=== PATIENT | female | born 1965 | race Caucasian/White ===

== ENCOUNTER 2017-05-08 15:12 | Outpatient (CLI) | payer BC | END 2017-05-08 15:13 | disposition home or self-care (01) | LOC: BICMAMMO 15:12 | PROVIDERS: ATTEND Family Medicine | DX: Z12.31 Encounter for screening mammogram for malignant neoplasm of breast (principal) | CPT/HCPCS: 77063; 77067 ==

== ENCOUNTER 2017-08-14 13:13 | Outpatient (CLI) | payer BC | END 2017-08-14 13:14 | disposition home or self-care (01) | LOC: BICRAD 13:13 | PROVIDERS: ATTEND Family Medicine | DX: M54.5 Low back pain (principal) | CPT/HCPCS: 72100 ==

== ENCOUNTER 2018-05-08 07:32 | Outpatient (CLI) | payer BC ==
--- NOTE | 2018-05-08 09:53 | ULT ---
ULTRASOUND ABDOMEN COMPLETE: DATE: 05/08/18 HISTORY: 52-year-old female with: Nausea R11.0 Belching symptom R14.2 Lower abdominal pain, unspecified R10.30 FINDINGS: The gallbladder has normal wall thickness and has no evidence of gallstones or sludge. The hepatic e chogenicity is normal. The kidneys have normal echogenicity, and there is no hydronephrosis. There is no splenomegaly. There is no abdominal aortic aneurysm. No free fluid is identified. The inferi or vena cava is visualized. The pancreas is visualized, although ultrasound is relatively insensitiv e for pancreatic pathology compared to CT and MRI. There is no biliary dilation. Common duct caliber is 4.0 mm. IMPRESSION: Normal. jn [] POS: [facility]
== END 2018-05-08 07:33 | disposition home or self-care (01) ==
LOC: ULT 07:32
PROVIDERS: ATTEND Internal Medicine Gastroenterology
DX: R10.30 Lower abdominal pain, unspecified (principal); R11.0 Nausea; K59.09 Other constipation; Z86.010 Personal history of colon polyps; R14.0 Abdominal distension (gaseous)
CPT/HCPCS: 76700

== ENCOUNTER 2022-06-10 11:28 | Outpatient (CLI) | payer BC | END 2022-06-10 11:29 | disposition home or self-care (01) | LOC: BICMAMMO 11:28 | PROVIDERS: ATTEND Family Medicine | DX: Z12.31 Encounter for screening mammogram for malignant neoplasm of breast (principal); Z80.3 Family history of malignant neoplasm of breast; Z98.890 Other specified postprocedural states | CPT/HCPCS: 77063; 77067 ==